=== PATIENT | female | born 1960 | race Caucasian/White ===

== ENCOUNTER 2017-12-08 13:44 | Inpatient (IN) | payer MEDICAID ==
[~2017-12-08] VITALS: Ht 160 cm; Wt 68.2 kg
[2017-12-08 14:13] LABS: GLUCOSE,POINT OF CARE 319 MG/DL (70-110)
[2017-12-08] MEDS ORDERED: antihypertensive PO (14:15)
[2017-12-08] MEDS ORDERED: [UNRECOGNIZED DRUG - REMARK] PO (14:15)
[2017-12-08] MEDS ORDERED: SODIUM CHLORIDE 0.9% 1,000 ML IV ONE ×3 (15:00→16:30)
[2017-12-08 15:37] LABS: BASOPHILS % (AUTO) 1.2 % (0.0-2.0); EOSINOPHILS % (AUTO) 0.8 % (1.0-6.0); HEMATOCRIT 39.1 % (36-46); HEMOGLOBIN 12.9 g/dL (12.0-16.0); LYMPHOCYTES # (AUTO) 4.3 K/uL (1.0-4.8); LYMPHOCYTES % (AUTO) 35.9 % (22.0-44.0); MEAN CORPUSCULAR HEMOGLOBIN 29.1 pg (26.0-34.0); MEAN CORPUSCULAR HGB CONC 32.9 G/dL (31.0-37.0); MEAN CORPUSCULAR VOLUME 89 fL (80-100); MONOCYTES # (AUTO) 0.6 K/uL (0.1-1.0); MONOCYTES % (AUTO) 5.2 % (2.0-9.0); NEUTROPHILS # (AUTO) 6.7 K/uL (1.8-7.7); NEUTROPHILS % (AUTO) 56.9 % (40.0-70.0); PLATELET COUNT (AUTO) 331 K/uL (150-450); RED BLOOD CELL COUNT(AUTO) 4.42 MIL/uL (4.00-5.20)
[2017-12-08 15:52] LABS: ANION GAP 11 mmol/L (8-16); CALCIUM, TOTAL 9.7 mg/dL (8.8-10.5); CARBON DIOXIDE 25 mmol/L (22-29); CHLORIDE 100 mmol/L (98-107); CREATININE 0.78 mg/dL (0.60-1.30); GLOMERULAR FILTR. RATE CALC > 60 mL/min (>60); GLUCOSE,RANDOM 316 mg/dL (70-110); POTASSIUM 4.8 mmol/L (3.5-5.1); SODIUM SERUM 136 mmol/L (136-145); UREA NITROGEN, BLOOD 18 mg/dL (7-18)
[2017-12-08 15:57] LABS: ALANINE AMINOTRANSFERASE 22 U/L (12-78); ALBUMIN 3.7 g/dL (3.4-5.0); ALKALINE PHOSPHATASE 106 U/L (46-116); ASPARTATE AMINOTRANSFERASE 21 U/L (15-37); BILIRUBIN,TOTAL 0.2 mg/dL (0.1-1.0); TOTAL PROTEIN, SERUM 8.7 g/dL (6.4-8.2)
[2017-12-08 15:59] LABS: LACTIC ACID 1.3 mmol/L (0.4-2.0)
[2017-12-08] MEDS ORDERED: VANCOMYCIN HCL 1 GM/D5% WATER 200 ML IV ONE (16:15)
[2017-12-08] MEDS ORDERED: INSULIN REGULAR, HUMAN 100 UNITS/ML IVP ONE (16:15)
[2017-12-08] MEDS ORDERED: 0.9% SODIUM CHLORIDE 10 ML SYRINGE IVP PRN (16:30)
[2017-12-08] MEDS ORDERED: ONDANSETRON HCL 4 MG/2 ML VIAL IVP PRN (16:30)
[2017-12-08] MEDS ORDERED: ACETAMINOPHEN 325 MG TABLET PO PRN (16:30)
[2017-12-08 16:47] LABS: BILIRUBIN,URINE NEGATIVE (NEGATIVE); GLUCOSE, URINE (UA) >=1000 mg/dL (NEGATIVE); KETONES,URINE TRACE mg/dL (NEGATIVE); LEUKOCYTE ESTERASE ,URINE MODERATE (NEGATIVE); NITRATE,URINE NEGATIVE (NEGATIVE); OCCULT BLOOD,URINE TRACE (NEGATIVE); PROTEIN,URINE NEGATIVE (NEGATIVE); UROBILINOGEN,URINE 0.2 mg/dL (<=1.0)
[2017-12-08 16:51] LABS: APPEARANCE,URINE HAZY (CLEAR)
[2017-12-08 16:55] LABS: BACTERIA,URINE Few /HPF (None Seen); RBC,URINE 0-2 /HPF (0-2); SQUAMOUS EPITHELIAL CELL,UR Few /LPF (None Seen)
[2017-12-08 16:59] LABS: YEAST,URINE Rare /HPF (None Seen)
[2017-12-08 17:33] LABS: GLUCOSE,POINT OF CARE 245 MG/DL (70-110)
[2017-12-08 17:54] VITALS: BP 158/78
[2017-12-08] MEDS ORDERED: PNEUMOCOCCAL VACCINE POLYVALENT 0.5 ML VIAL [PPSV23] IM ONE (18:15)
[2017-12-08] MEDS ORDERED: INFLUENZA VIRUS VACCINE QVS 2017-18 (3YR+)/PF 60 MCG/0.5 ML SYRINGE IM ONE (18:15)
[2017-12-08 20:01] VITALS: BP 137/72
[2017-12-08 20:53] LABS: GLUCOMETER DEV NAME(LOC) 6N 2D; GLUCOSE,POINT OF CARE 267 MG/DL (70-110)
[2017-12-08] MEDS ORDERED: DEXTROSE 50%-WATER 25 GM/50 ML SYRINGE IVP PRN (21:00)
[2017-12-08] MEDS: DORZOLAMIDE/TIMOLOL 2-0.5% [22.3-6.8MG/ML] 10 ML OPHTHALMIC SOLUTION OS SCH (21:00)
[2017-12-08] MEDS: LATANOPROST 0.005% 2.5 ML OPHTHALMIC SOLUTION OU SCH ×2 (21:00→23:27)
[2017-12-08] MEDS: BRIMONIDINE TARTRATE 0.2% 5 ML OPHTHALMIC SOLUTION OS SCH ×2 (21:00→23:28)
[2017-12-08] MEDS ORDERED: VANCOMYCIN HCL 500 MG in DEXTROSE 5%-WATER 100 ML IV ONE (21:30)
[2017-12-08] MEDS: PIPERACILLIN/TAZO 3.375 GM/D5W 50 ML IV SCH (23:27)
[2017-12-08] MEDS: HYDROCODONE/ACETAMINOPHEN 5-325 MG TABLET PO PRN (23:27)
[2017-12-08] MEDS: INSULIN ASPART 100 UNITS/ML SQ PRN (23:29)
[2017-12-08] MEDS: HEPARIN SODIUM,PORCINE 5,000 UNITS/ML VIAL SQ SCH (23:43)
[2017-12-09 00:23] VITALS: BP 147/78
[2017-12-09] MEDS: PIPERACILLIN/TAZO 3.375 GM/D5W 50 ML IV SCH ×5 (03:53→20:11)
[2017-12-09 04:15] VITALS: BP 111/61
[2017-12-09] MEDS: INSULIN ASPART 100 UNITS/ML SQ PRN ×4 (05:49→21:17)
[2017-12-09 06:16] LABS: ANION GAP 9 mmol/L (8-16); CALCIUM, TOTAL 8.7 mg/dL (8.8-10.5); CARBON DIOXIDE 26 mmol/L (22-29); CHLORIDE 107 mmol/L (98-107); CREATININE 0.83 mg/dL (0.60-1.30); GLOMERULAR FILTR. RATE CALC > 60 mL/min (>60); GLUCOSE,RANDOM 165 mg/dL (70-110); POTASSIUM 4.4 mmol/L (3.5-5.1); SODIUM SERUM 142 mmol/L (136-145); UREA NITROGEN, BLOOD 15 mg/dL (7-18)
[2017-12-09] MEDS ORDERED: METF850T2 PO (06:44)
[2017-12-09] MEDS ORDERED: ENAL20 PO (06:44)
[2017-12-09 07:58] VITALS: BP 106/67
[2017-12-09] MEDS: HEPARIN SODIUM,PORCINE 5,000 UNITS/ML VIAL SQ SCH ×3 (08:15→22:57)
[2017-12-09] MEDS: VANCOMYCIN HCL 1.25 GM in DEXTROSE 5%-WATER 250 ML IV SCH ×2 (08:15→20:58)
[2017-12-09] MEDS: MetFORMIN HCL 850 MG TABLET PO SCH ×2 (08:16→17:51)
[2017-12-09] MEDS: HYDROCODONE/ACETAMINOPHEN 5-325 MG TABLET PO PRN ×2 (08:16→22:56)
[2017-12-09] MEDS: BRIMONIDINE TARTRATE 0.2% 5 ML OPHTHALMIC SOLUTION OS SCH ×2 (08:17→20:13)
[2017-12-09] MEDS: ENALAPRIL MALEATE 20 MG TABLET PO SCH (08:17)
[2017-12-09] MEDS: DORZOLAMIDE/TIMOLOL/PF 2-0.5% [22.3-6.8MG/ML] 0.2 ML OPHTHALMIC SOLUTION OS SCH ×2 (10:27→20:13)
[2017-12-09 11:59] VITALS: BP 105/62
[2017-12-09 13:08] LABS: GLUCOMETER DEV NAME(LOC) 6N 1E; GLUCOSE,POINT OF CARE 331 MG/DL (70-110)
[2017-12-09 13:08] LABS: GLUCOMETER DEV NAME(LOC) 6N 1E; GLUCOSE,POINT OF CARE 160 MG/DL (70-110)
[2017-12-09] MEDS: MAGNESIUM HYDROXIDE SUSPENSION 30 ML UDCUP PO PRN (17:54)
[2017-12-09 19:24] VITALS: BP 93/60
[2017-12-09 19:48] LABS: GLUCOMETER DEV NAME(LOC) 6N 1E; GLUCOSE,POINT OF CARE 220 MG/DL (70-110)
[2017-12-09] MEDS: LATANOPROST 0.005% 2.5 ML OPHTHALMIC SOLUTION OU SCH (20:13)
[2017-12-09 23:38] VITALS: BP 103/52
[2017-12-10 02:17] LABS: GLUCOMETER DEV NAME(LOC) 6N 1E; GLUCOSE,POINT OF CARE 203 MG/DL (70-110)
[2017-12-10] MEDS: PIPERACILLIN/TAZO 3.375 GM/D5W 50 ML IV SCH ×4 (03:30→20:15)
[2017-12-10] MEDS ORDERED: SODIUM CHLORIDE 0.9% 500 ML IV ONE (03:32)
[2017-12-10 04:18] VITALS: BP 102/62
[2017-12-10] MEDS: INSULIN ASPART 100 UNITS/ML SQ PRN ×4 (06:03→20:36)
[2017-12-10 06:19] LABS: BASOPHILS % (AUTO) 0.7 % (0.0-2.0); EOSINOPHILS % (AUTO) 1.7 % (1.0-6.0); HEMATOCRIT 34.5 % (36-46); HEMOGLOBIN 11.5 g/dL (12.0-16.0); LYMPHOCYTES # (AUTO) 5.4 K/uL (1.0-4.8); LYMPHOCYTES % (AUTO) 58.4 % (22.0-44.0); MEAN CORPUSCULAR HEMOGLOBIN 29.9 pg (26.0-34.0); MEAN CORPUSCULAR HGB CONC 33.4 G/dL (31.0-37.0); MEAN CORPUSCULAR VOLUME 90 fL (80-100); MONOCYTES # (AUTO) 0.5 K/uL (0.1-1.0); MONOCYTES % (AUTO) 5.4 % (2.0-9.0); NEUTROPHILS # (AUTO) 3.2 K/uL (1.8-7.7); NEUTROPHILS % (AUTO) 33.8 % (40.0-70.0); PLATELET COUNT (AUTO) 283 K/uL (150-450); RED BLOOD CELL COUNT(AUTO) 3.85 MIL/uL (4.00-5.20); RED CELL DISTRIBUTION WIDTH 13.2 % (11.5-14.5)
[2017-12-10 06:23] LABS: GLUCOMETER DEV NAME(LOC) 6N 1E; GLUCOSE,POINT OF CARE 207 MG/DL (70-110)
[2017-12-10 06:41] LABS: ANION GAP 9 mmol/L (8-16); CALCIUM, TOTAL 8.9 mg/dL (8.8-10.5); CARBON DIOXIDE 27 mmol/L (22-29); CHLORIDE 103 mmol/L (98-107); CHOL/HDL RATIO 6.9 (3.9-5.7); CHOLESTEROL 228 mg/dL (131-200); CREATININE 0.85 mg/dL (0.60-1.30); GLOMERULAR FILTR. RATE CALC > 60 mL/min (>60); GLUCOSE,RANDOM 183 mg/dL (70-110); HDL CHOLESTEROL 33 mg/dL (40-60); LDL CHOL (CALC.) 139 mg/dL (0-130); POTASSIUM 4.6 mmol/L (3.5-5.1); SODIUM SERUM 139 mmol/L (136-145); THYROID STIMULATING HORMONE 1.99 uIU/mL (0.36-3.74); TRIGLYCERIDES 278 mg/dL (15-150); UREA NITROGEN, BLOOD 14 mg/dL (7-18); VANCOMYCIN,RANDOM 21.9 mcg/mL (25.0-50.0)
[2017-12-10 07:11] LABS: HEMOGLOBIN A1C 11.5 % (4.5-6.2)
[2017-12-10 07:27] VITALS: BP 104/60
[2017-12-10] MEDS: HEPARIN SODIUM,PORCINE 5,000 UNITS/ML VIAL SQ SCH ×3 (07:54→23:16)
[2017-12-10] MEDS: MetFORMIN HCL 850 MG TABLET PO SCH ×2 (07:54→17:16)
[2017-12-10] MEDS: ENALAPRIL MALEATE 20 MG TABLET PO SCH (07:54)
[2017-12-10] MEDS: BRIMONIDINE TARTRATE 0.2% 5 ML OPHTHALMIC SOLUTION OS SCH ×2 (07:55→20:16)
[2017-12-10] MEDS: VANCOMYCIN HCL 1.25 GM in DEXTROSE 5%-WATER 250 ML IV SCH ×2 (07:55→20:34)
[2017-12-10] MEDS: DORZOLAMIDE/TIMOLOL/PF 2-0.5% [22.3-6.8MG/ML] 0.2 ML OPHTHALMIC SOLUTION OS SCH ×2 (09:48→20:17)
[2017-12-10 11:29] VITALS: BP 106/57
[2017-12-10 11:38] LABS: GLUCOMETER DEV NAME(LOC) 6N 1E; GLUCOSE,POINT OF CARE 303 MG/DL (70-110)
[2017-12-10 15:20] VITALS: BP 108/57
[2017-12-10] MEDS ORDERED: MAGNESIUM SULFATE 2 GM in DEXTROSE 5%-WATER 50 ML IV PRN (16:45)
[2017-12-10] MEDS ORDERED: MAGNESIUM SULFATE 4 GM/WATER 100 ML IV PRN (16:45)
[2017-12-10] MEDS: HYDROCODONE/ACETAMINOPHEN 5-325 MG TABLET PO PRN ×2 (17:16→23:16)
[2017-12-10] MEDS: MAGNESIUM OXIDE 400 MG TABLET PO PRN ×2 (17:16→23:16)
[2017-12-10] MEDS: MAGNESIUM HYDROXIDE SUSPENSION 30 ML UDCUP PO PRN (17:16)
[2017-12-10 19:46] VITALS: BP 111/64
[2017-12-10] MEDS: LATANOPROST 0.005% 2.5 ML OPHTHALMIC SOLUTION OU SCH (20:34)
[2017-12-10] MEDS ORDERED: INSULIN DETEMIR 100 UNITS/ML SQ SCH (21:00)
[2017-12-10] MEDS ORDERED: ATORVASTATIN CALCIUM 10 MG TABLET PO SCH (21:00)
[2017-12-10 23:39] VITALS: BP 106/58
[2017-12-11] MEDS: PIPERACILLIN/TAZO 3.375 GM/D5W 50 ML IV SCH ×3 (02:46→16:48)
[2017-12-11 04:00] VITALS: BP 105/45
[2017-12-11 07:24] LABS: CALCIUM, TOTAL 9.1 mg/dL (8.8-10.5); CREATININE 1.09 mg/dL (0.60-1.30); POTASSIUM 4.3 mmol/L (3.5-5.1)
[2017-12-11 07:57] VITALS: BP 100/52
[2017-12-11] MEDS: MetFORMIN HCL 850 MG TABLET PO SCH ×2 (08:30→18:10)
[2017-12-11] MEDS: VANCOMYCIN HCL 1.25 GM in DEXTROSE 5%-WATER 250 ML IV SCH (08:30)
[2017-12-11] MEDS: DORZOLAMIDE/TIMOLOL/PF 2-0.5% [22.3-6.8MG/ML] 0.2 ML OPHTHALMIC SOLUTION OS SCH (08:30)
[2017-12-11] MEDS: HYDROCODONE/ACETAMINOPHEN 5-325 MG TABLET PO PRN ×2 (08:31→18:20)
[2017-12-11] MEDS: BRIMONIDINE TARTRATE 0.2% 5 ML OPHTHALMIC SOLUTION OS SCH (08:31)
[2017-12-11] MEDS: HEPARIN SODIUM,PORCINE 5,000 UNITS/ML VIAL SQ SCH ×2 (08:31→16:48)
[2017-12-11] MEDS: INSULIN ASPART 100 UNITS/ML SQ PRN ×3 (08:32→17:55)
[2017-12-11] MEDS: ENALAPRIL MALEATE 20 MG TABLET PO SCH ×2 (08:33→08:38)
[2017-12-11 11:30] VITALS: BP 94/55
[2017-12-11 14:47] LABS: GLUCOMETER DEV NAME(LOC) 6N 1E; GLUCOSE,POINT OF CARE 205 MG/DL (70-110)
[2017-12-11 14:52] LABS: GLUCOMETER DEV NAME(LOC) 6N 1E; GLUCOSE,POINT OF CARE 204 MG/DL (70-110)
[2017-12-11 14:52] LABS: GLUCOMETER DEV NAME(LOC) 6N 1E; GLUCOSE,POINT OF CARE 145 MG/DL (70-110)
[2017-12-11] MEDS ORDERED: HYDR-309 PO (15:13)
[2017-12-11] MEDS ORDERED: ATOR10TA84 PO (15:13)
[2017-12-11] MEDS ORDERED: INSU100V12 SQ (15:14)
[2017-12-11 15:56] VITALS: BP 115/65
[2017-12-11] MEDS ORDERED: METF500T4 PO (16:36)
[2017-12-11 18:53] LABS: GLUCOMETER DEV NAME(LOC) 6N 2D; GLUCOSE,POINT OF CARE 247 MG/DL (70-110)
[2017-12-11 18:53] LABS: GLUCOMETER DEV NAME(LOC) 6N 2D; GLUCOSE,POINT OF CARE 171 MG/DL (70-110)
== END 2017-12-11 18:48 | disposition home or self-care (01) | DRG 463 ==
LOC: EMS 13:47 → 6N 17:09
PROVIDERS: ADMIT Family Medicine; ATTEND Family Medicine
DX: N39.0 Urinary tract infection, site not specified (principal); E11.628 Type 2 diabetes mellitus with other skin complications; L03.115 Cellulitis of right lower limb; I10 Essential (primary) hypertension; H54.7 Unspecified visual loss; I45.2 Bifascicular block
CPT/HCPCS: 82962; 83036; 83605; 83735; 84443; 87040; 87086; 93005; 93925; 96374; 96375; 99285; J1644; J1815; J2543; J3370; J7030; J7040; J7060

== ENCOUNTER 2018-09-28 20:31 | Inpatient (IN) | payer MEDICAID ==
[~2018-09-28] VITALS: Ht 162.6 cm; Wt 87.3 kg
[~2018-09-28 20:31] MED LIST: ATOR10TA84 PO; BRIM15DR8 OS; CEPH500 PO; ENAL20 PO; HYDR-309 PO; IBUP-2071 PO; INSU100V12 SQ; METF-960 PO; XALA2.5OS OD
[2018-09-28 20:53] LABS: GLUCOSE,POINT OF CARE 357 MG/DL (70-110)
[2018-09-28] MEDS ORDERED: ASPI81 PO (21:10)
[2018-09-28] MEDS ORDERED: AMLO-512 PO (21:10)
[2018-09-28] MEDS ORDERED: PANT40TA25 PO (21:10)
[2018-09-28] MEDS ORDERED: PREDAOS OD (21:10)
[2018-09-28] MEDS ORDERED: PIPERACILLIN/TAZO 3.375 GM/D5W 50 ML IV ONE (21:30)
[2018-09-28] MEDS ORDERED: INSULIN REGULAR, HUMAN 100 UNITS/ML IVP ONE (21:45)
[2018-09-28 22:15] LABS: BASOPHILS % (AUTO) 0.9 % (0.0-2.0); EOSINOPHILS % (AUTO) 0.7 % (1.0-6.0); HEMATOCRIT 37.4 % (36-46); HEMOGLOBIN 12.4 g/dL (12.0-16.0); LYMPHOCYTES # (AUTO) 4.2 K/uL (1.0-4.8); LYMPHOCYTES % (AUTO) 31.3 % (22.0-44.0); MEAN CORPUSCULAR HEMOGLOBIN 30.2 pg (26.0-34.0); MEAN CORPUSCULAR HGB CONC 33.3 G/dL (31.0-37.0); MEAN CORPUSCULAR VOLUME 91 fL (80-100); MONOCYTES # (AUTO) 0.9 K/uL (0.1-1.0); NEUTROPHILS % (AUTO) 60.1 % (40.0-70.0); PLATELET COUNT (AUTO) 354 K/uL (150-450); RED BLOOD CELL COUNT(AUTO) 4.12 MIL/uL (4.00-5.20)
[2018-09-28 22:26] LABS: ANION GAP 10 mmol/L (8-16); CALCIUM, TOTAL 9.5 mg/dL (8.8-10.5); CARBON DIOXIDE 26 mmol/L (22-29); CHLORIDE 99 mmol/L (98-107); CREATININE 1.06 mg/dL (0.60-1.30); GLOMERULAR FILTR. RATE CALC 53 mL/min (>60); GLUCOSE,RANDOM 319 mg/dL (70-110); INR 0.9 (0.9-1.1); POTASSIUM 4.5 mmol/L (3.5-5.1); PROTHROMBIN TIME 9.7 SEC (9.4-11.6); SODIUM SERUM 135 mmol/L (136-145); UREA NITROGEN, BLOOD 24 mg/dL (7-18)
[2018-09-28 22:32] LABS: ALANINE AMINOTRANSFERASE 22 U/L (12-78); ALBUMIN 3.6 g/dL (3.4-5.0); ALKALINE PHOSPHATASE 115 U/L (46-116); ASPARTATE AMINOTRANSFERASE 15 U/L (15-37); BILIRUBIN,TOTAL 0.2 mg/dL (0.1-1.0); TOTAL PROTEIN, SERUM 8.4 g/dL (6.4-8.2)
[2018-09-28 22:37] LABS: LACTIC ACID 2.6 mmol/L (0.4-2.0)
[2018-09-28 22:38] LABS: ACETONE,BLOOD NEGATIVE (NEGATIVE)
[2018-09-28] MEDS ORDERED: ACETAMINOPHEN 325 MG TABLET PO PRN (23:15)
[2018-09-28] MEDS ORDERED: 0.9% SODIUM CHLORIDE 10 ML SYRINGE IVP PRN (23:15)
[2018-09-28] MEDS ORDERED: ONDANSETRON HCL 4 MG/2 ML VIAL IVP PRN (23:15)
[2018-09-28 23:39] LABS: GLUCOSE,POINT OF CARE 133 MG/DL (70-110)
[2018-09-29] VITALS (8 sets, daily range): BP systolic 94–153; BP diastolic 52–80
[2018-09-29] MEDS ORDERED: ALBUTEROL SULFATE 2.5 MG/0.5 ML NEB SOLUTION NEB PRN
[2018-09-29] MEDS ORDERED: MAGNESIUM OXIDE 400 MG TABLET PO PRN
[2018-09-29] MEDS ORDERED: MAGNESIUM HYDROXIDE SUSPENSION 30 ML UDCUP PO PRN
[2018-09-29] MEDS ORDERED: MAGNESIUM SULFATE 2 GM/WATER 50 ML IV PRN
[2018-09-29] MEDS ORDERED: DEXTROSE 50%-WATER 25 GM/50 ML SYRINGE IVP PRN
[2018-09-29] MEDS ORDERED: MORPHINE SULFATE 4 MG/ML SYRINGE IVP PRN
[2018-09-29] MEDS ORDERED: IPRATROPIUM BROMIDE 0.5 MG/2.5 ML NEB SOLUTION NEB PRN
[2018-09-29] MEDS ORDERED: POTASSIUM CHLORIDE 20 MEQ ER TABLET PO PRN
[2018-09-29] MEDS ORDERED: MAGNESIUM SULFATE 4 GM/WATER 100 ML IV PRN
[2018-09-29] MEDS ORDERED: ONDANSETRON HCL 4 MG/2 ML VIAL IVP PRN
[2018-09-29] MEDS ORDERED: POTASSIUM CHL 10 MEQ/WATER 50 ML IV PRN
[2018-09-29] MEDS ORDERED: BISACODYL 10 MG RECTAL RECTAL SUPPOSITORY PR PRN
[2018-09-29] MEDS ORDERED: ZOLPIDEM TARTRATE 5 MG TABLET PO PRN
[2018-09-29] MEDS: ACETAMINOPHEN 325 MG TABLET PO PRN ×2 (01:23→20:54)
[2018-09-29] MEDS ORDERED: PIPERACILLIN/TAZO 3.375 GM/D5W 50 ML IV SCH (04:00)
[2018-09-29] MEDS ORDERED: SODIUM CHLORIDE 0.9% 100 ML ONE (04:01)
[2018-09-29] MEDS: PIPERACILLIN/TAZO 3.375 GM/D5W 50 ML IV SCH ×4 (04:06→22:54)
[2018-09-29] MEDS ORDERED: PIPERACILLIN/TAZO 3.375 GM/D5W 50 ML IV ONE (04:15)
[2018-09-29] MEDS ORDERED: PNEUMOCOCCAL VACCINE POLYVALENT 0.5 ML VIAL [PPSV23] IM ONE (05:00)
[2018-09-29] MEDS: INSULIN LISPRO 100 UNITS/ML SQ PRN ×4 (06:29→20:55)
[2018-09-29 06:39] LABS: BASOPHILS % (AUTO) 0.6 % (0.0-2.0); EOSINOPHILS % (AUTO) 0.9 % (1.0-6.0); HEMATOCRIT 31.9 % (36-46); HEMOGLOBIN 10.9 g/dL (12.0-16.0); LYMPHOCYTES # (AUTO) 4.2 K/uL (1.0-4.8); LYMPHOCYTES % (AUTO) 36.1 % (22.0-44.0); MEAN CORPUSCULAR HEMOGLOBIN 30.5 pg (26.0-34.0); MEAN CORPUSCULAR VOLUME 90 fL (80-100); MONOCYTES # (AUTO) 0.8 K/uL (0.1-1.0); MONOCYTES % (AUTO) 7.3 % (2.0-9.0); NEUTROPHILS # (AUTO) 6.4 K/uL (1.8-7.7); NEUTROPHILS % (AUTO) 55.1 % (40.0-70.0); PLATELET COUNT (AUTO) 304 K/uL (150-450); RED BLOOD CELL COUNT(AUTO) 3.56 MIL/uL (4.00-5.20); RED CELL DISTRIBUTION WIDTH 12.9 % (11.5-14.5)
[2018-09-29 06:52] LABS: ALBUMIN 2.9 g/dL (3.4-5.0); BILIRUBIN,TOTAL 0.3 mg/dL (0.1-1.0); CALCIUM, TOTAL 9.1 mg/dL (8.8-10.5); CREATININE 1.17 mg/dL (0.60-1.30); MAGNESIUM 1.4 mg/dL (1.80-2.40); PHOSPHORUS 4.5 mg/dL (2.5-4.9); POTASSIUM 4.7 mmol/L (3.5-5.1); TOTAL PROTEIN, SERUM 6.7 g/dL (6.4-8.2)
[2018-09-29 07:01] LABS: HEMOGLOBIN A1C 11.6 % (4.5-6.2)
[2018-09-29] MEDS ORDERED: MetFORMIN HCL 500 MG TABLET PO SCH (08:00)
[2018-09-29] MEDS: PANTOPRAZOLE SODIUM 40 MG DR TABLET PO SCH (08:33)
[2018-09-29] MEDS: ASPIRIN 81 MG CHEWABLE TABLET PO SCH (08:33)
[2018-09-29] MEDS: PrednisoLONE ACETATE 1% 5 ML OPHTHALMIC SUSPENSION OD SCH (08:34)
[2018-09-29] MEDS: BRIMONIDINE TARTRATE 0.2% 5 ML OPHTHALMIC SOLUTION OS SCH ×2 (08:34→21:44)
[2018-09-29] MEDS: HEPARIN SODIUM,PORCINE 5,000 UNITS/ML VIAL SQ SCH ×2 (08:36→20:55)
[2018-09-29] MEDS ORDERED: AmLODIPine BESYLATE 10 MG TABLET PO SCH (09:00)
[2018-09-29] MEDS ORDERED: ENALAPRIL MALEATE 20 MG TABLET PO SCH (09:00)
[2018-09-29] MEDS ORDERED: SODIUM CHLORIDE 0.9% 250 ML IV ONE (11:29)
[2018-09-29 18:59] LABS: GLUCOMETER DEV NAME(LOC) 6N 1E; GLUCOSE,POINT OF CARE 199 MG/DL (70-110)
[2018-09-29 19:58] LABS: GLUCOMETER DEV NAME(LOC) 5S 2R; GLUCOSE,POINT OF CARE 178 MG/DL (70-110)
[2018-09-29 19:58] LABS: GLUCOMETER DEV NAME(LOC) 5S 2R; GLUCOSE,POINT OF CARE 166 MG/DL (70-110)
[2018-09-29] MEDS: ATORVASTATIN CALCIUM 10 MG TABLET PO SCH (20:54)
[2018-09-29] MEDS: LATANOPROST 0.005% 2.5 ML OPHTHALMIC SOLUTION OD SCH (21:44)
[2018-09-29 22:18] LABS: GLUCOMETER DEV NAME(LOC) 6N 1E; GLUCOSE,POINT OF CARE 211 MG/DL (70-110)
[2018-09-30] MEDS: PIPERACILLIN/TAZO 3.375 GM/D5W 50 ML IV SCH ×4 (04:49→21:44)
[2018-09-30 05:13] VITALS: BP 105/61
[2018-09-30] MEDS: INSULIN LISPRO 100 UNITS/ML SQ PRN ×4 (06:10→20:23)
[2018-09-30 07:14] LABS: GLUCOMETER DEV NAME(LOC) 6N 2D; GLUCOSE,POINT OF CARE 195 MG/DL (70-110)
[2018-09-30 07:59] VITALS: BP 107/60
[2018-09-30] MEDS: HEPARIN SODIUM,PORCINE 5,000 UNITS/ML VIAL SQ SCH ×2 (08:12→20:19)
[2018-09-30] MEDS: ASPIRIN 81 MG CHEWABLE TABLET PO SCH (08:12)
[2018-09-30] MEDS: PANTOPRAZOLE SODIUM 40 MG DR TABLET PO SCH (08:12)
[2018-09-30] MEDS: PrednisoLONE ACETATE 1% 5 ML OPHTHALMIC SUSPENSION OD SCH (08:13)
[2018-09-30] MEDS: BRIMONIDINE TARTRATE 0.2% 5 ML OPHTHALMIC SOLUTION OS SCH ×2 (08:13→20:19)
[2018-09-30 09:38] LABS: CALCIUM, TOTAL 8.8 mg/dL (8.8-10.5); CREATININE 1.11 mg/dL (0.60-1.30); POTASSIUM 4.8 mmol/L (3.5-5.1)
[2018-09-30 13:13] LABS: GLUCOMETER DEV NAME(LOC) 6N 2D; GLUCOSE,POINT OF CARE 253 MG/DL (70-110)
[2018-09-30] MEDS: OxyCODONE HCL/ACETAMINOPHEN 5-325 MG TABLET PO PRN (14:07)
[2018-09-30 15:25] VITALS: BP 138/66
[2018-09-30 15:35] VITALS: BP 126/55
[2018-09-30 17:38] LABS: GLUCOMETER DEV NAME(LOC) 6N 2D; GLUCOSE,POINT OF CARE 211 MG/DL (70-110)
[2018-09-30 19:45] VITALS: BP 111/68
[2018-09-30] MEDS: LATANOPROST 0.005% 2.5 ML OPHTHALMIC SOLUTION OD SCH (20:18)
[2018-09-30] MEDS: ATORVASTATIN CALCIUM 10 MG TABLET PO SCH (20:19)
[2018-09-30] MEDS: ACETAMINOPHEN 325 MG TABLET PO PRN (20:19)
[2018-09-30 22:13] LABS: GLUCOMETER DEV NAME(LOC) 6N 2D; GLUCOSE,POINT OF CARE 270 MG/DL (70-110)
[2018-09-30 23:51] VITALS: BP 96/55
[2018-10-01 04:50] VITALS: BP 108/62
[2018-10-01] MEDS: PIPERACILLIN/TAZO 3.375 GM/D5W 50 ML IV SCH ×4 (04:56→22:06)
[2018-10-01] MEDS: INSULIN LISPRO 100 UNITS/ML SQ PRN ×4 (05:42→22:07)
[2018-10-01] MEDS: ACETAMINOPHEN 325 MG TABLET PO PRN ×2 (05:47→15:53)
[2018-10-01 07:29] LABS: GLUCOMETER DEV NAME(LOC) 6N 2D; GLUCOSE,POINT OF CARE 189 MG/DL (70-110)
[2018-10-01 08:14] VITALS: BP 110/69
[2018-10-01] MEDS: ASPIRIN 81 MG CHEWABLE TABLET PO SCH (09:00)
[2018-10-01] MEDS: HEPARIN SODIUM,PORCINE 5,000 UNITS/ML VIAL SQ SCH ×3 (09:00→23:54)
[2018-10-01] MEDS ORDERED: RINGERS SOLUTION,LACTATED 1,000 ML IV ONE (09:00)
[2018-10-01] MEDS ORDERED: HEPARIN SODIUM 1000 UNITS/NS 500 ML ONE (09:34)
[2018-10-01] MEDS ORDERED: SODIUM CHLORIDE 0.9% 0 ML IV ONE (09:34)
[2018-10-01] MEDS ORDERED: LIDOCAINE/PF 1% 30 ML VIAL ONE (09:34)
[2018-10-01] MEDS ORDERED: VERAPAMIL HCL 2.5 MG/ML 2 ML VIAL ONE (09:37)
[2018-10-01] MEDS ORDERED: IODIXANOL 320 MG/ML 100 ML VIAL ONE (09:43)
[2018-10-01 12:30] VITALS: BP 127/79
[2018-10-01] MEDS: PrednisoLONE ACETATE 1% 5 ML OPHTHALMIC SUSPENSION OD SCH (12:31)
[2018-10-01] MEDS: PANTOPRAZOLE SODIUM 40 MG DR TABLET PO SCH (12:32)
[2018-10-01] MEDS: BRIMONIDINE TARTRATE 0.2% 5 ML OPHTHALMIC SOLUTION OS SCH ×2 (12:32→20:50)
[2018-10-01 15:48] VITALS: BP 127/76
[2018-10-01 16:04] LABS: GLUCOMETER DEV NAME(LOC) 6N 1E; GLUCOSE,POINT OF CARE 256 MG/DL (70-110)
[2018-10-01 19:22] VITALS: BP 109/74
[2018-10-01 19:49] LABS: GLUCOMETER DEV NAME(LOC) 6N 2D; GLUCOSE,POINT OF CARE 183 MG/DL (70-110)
[2018-10-01] MEDS: ATORVASTATIN CALCIUM 10 MG TABLET PO SCH (20:50)
[2018-10-01] MEDS: LATANOPROST 0.005% 2.5 ML OPHTHALMIC SOLUTION OD SCH (20:50)
[2018-10-01] MEDS: OxyCODONE HCL/ACETAMINOPHEN 5-325 MG TABLET PO PRN (20:58)
[2018-10-01 23:03] VITALS: BP 103/61
[2018-10-02] MEDS: PIPERACILLIN/TAZO 3.375 GM/D5W 50 ML IV SCH ×4 (04:06→20:50)
[2018-10-02 04:14] VITALS: BP 112/68
[2018-10-02] MEDS: OxyCODONE HCL/ACETAMINOPHEN 5-325 MG TABLET PO PRN ×4 (04:27→22:24)
[2018-10-02] MEDS ORDERED: MIDAZOLAM HCL 2 MG/2 ML VIAL IVP ONE (05:40)
[2018-10-02] MEDS ORDERED: FentaNYL CITRATE-PF 100 MCG/2 ML VIAL IVP ONE (05:40)
[2018-10-02] MEDS ORDERED: HEPARIN SODIUM,PORCINE 1,000 UNITS/ML VIAL IVP ONE (05:40)
[2018-10-02 06:08] LABS: GLUCOMETER DEV NAME(LOC) 6N 2D; GLUCOSE,POINT OF CARE 201 MG/DL (70-110)
[2018-10-02] MEDS: INSULIN LISPRO 100 UNITS/ML SQ PRN ×4 (06:28→21:00)
[2018-10-02 07:40] VITALS: BP 127/73
[2018-10-02] MEDS ORDERED: MEDRONATE TC99M/UD<30 MCL ISOTOPE 1 EA INJ INJ ONE (09:27)
[2018-10-02] MEDS: PANTOPRAZOLE SODIUM 40 MG DR TABLET PO SCH (09:39)
[2018-10-02] MEDS: HEPARIN SODIUM,PORCINE 5,000 UNITS/ML VIAL SQ SCH ×2 (09:39→20:50)
[2018-10-02] MEDS: ASPIRIN 81 MG CHEWABLE TABLET PO SCH (09:39)
[2018-10-02] MEDS: BRIMONIDINE TARTRATE 0.2% 5 ML OPHTHALMIC SOLUTION OS SCH ×2 (09:40→20:50)
[2018-10-02] MEDS: PrednisoLONE ACETATE 1% 5 ML OPHTHALMIC SUSPENSION OD SCH (09:40)
[2018-10-02 11:10] VITALS: BP 103/65
[2018-10-02 12:24] LABS: GLUCOMETER DEV NAME(LOC) 6N 1E; GLUCOSE,POINT OF CARE 198 MG/DL (70-110)
[2018-10-02 13:44] LABS: GLUCOMETER DEV NAME(LOC) 6N 2D; GLUCOSE,POINT OF CARE 321 MG/DL (70-110)
[2018-10-02 16:01] VITALS: BP 144/74
[2018-10-02 19:54] LABS: GLUCOMETER DEV NAME(LOC) 6N 2D; GLUCOSE,POINT OF CARE 242 MG/DL (70-110)
[2018-10-02 19:55] VITALS: BP 125/69
[2018-10-02] MEDS: LATANOPROST 0.005% 2.5 ML OPHTHALMIC SOLUTION OD SCH (20:50)
[2018-10-02] MEDS: ATORVASTATIN CALCIUM 10 MG TABLET PO SCH (20:50)
[2018-10-03 00:02] VITALS: BP 102/50
[2018-10-03 02:53] LABS: GLUCOMETER DEV NAME(LOC) 6N 1E; GLUCOSE,POINT OF CARE 292 MG/DL (70-110)
[2018-10-03] MEDS: PIPERACILLIN/TAZO 3.375 GM/D5W 50 ML IV SCH ×4 (04:56→22:13)
[2018-10-03] MEDS: INSULIN LISPRO 100 UNITS/ML SQ PRN ×4 (05:31→22:14)
[2018-10-03 05:33] VITALS: BP 110/61
[2018-10-03 07:59] VITALS: BP 113/65
[2018-10-03 08:03] LABS: GLUCOMETER DEV NAME(LOC) 6N 1E; GLUCOSE,POINT OF CARE 215 MG/DL (70-110)
[2018-10-03] MEDS: PANTOPRAZOLE SODIUM 40 MG DR TABLET PO SCH (09:16)
[2018-10-03] MEDS: ASPIRIN 81 MG CHEWABLE TABLET PO SCH (09:16)
[2018-10-03] MEDS: HEPARIN SODIUM,PORCINE 5,000 UNITS/ML VIAL SQ SCH ×2 (09:16→20:12)
[2018-10-03] MEDS: MULTIVITAMINS WITH MINERALS, THERAPEUTIC TABLET PO SCH (09:16)
[2018-10-03] MEDS: PrednisoLONE ACETATE 1% 5 ML OPHTHALMIC SUSPENSION OD SCH (09:17)
[2018-10-03] MEDS: BRIMONIDINE TARTRATE 0.2% 5 ML OPHTHALMIC SOLUTION OS SCH ×2 (09:17→20:12)
[2018-10-03 11:51] VITALS: BP 113/67
[2018-10-03] MEDS: OxyCODONE HCL/ACETAMINOPHEN 5-325 MG TABLET PO PRN ×2 (13:19→20:12)
[2018-10-03 16:04] VITALS: BP 135/71
[2018-10-03] MEDS ORDERED: SODIUM CHLORIDE 0.9% 250 ML IV ONE (16:13)
[2018-10-03 18:54] LABS: GLUCOMETER DEV NAME(LOC) 6N 1E; GLUCOSE,POINT OF CARE 306 MG/DL (70-110)
[2018-10-03 18:54] LABS: GLUCOMETER DEV NAME(LOC) 6N 2D; GLUCOSE,POINT OF CARE 275 MG/DL (70-110)
[2018-10-03] MEDS: ATORVASTATIN CALCIUM 10 MG TABLET PO SCH (20:11)
[2018-10-03] MEDS: LATANOPROST 0.005% 2.5 ML OPHTHALMIC SOLUTION OD SCH (20:12)
[2018-10-03 20:49] VITALS: BP 111/68
[2018-10-03] MEDS: ACETAMINOPHEN 325 MG TABLET PO PRN (22:13)
[2018-10-04 00:25] VITALS: BP 104/55
[2018-10-04 00:39] LABS: GLUCOMETER DEV NAME(LOC) 6N 1E; GLUCOSE,POINT OF CARE 218 MG/DL (70-110)
[2018-10-04] MEDS: PIPERACILLIN/TAZO 3.375 GM/D5W 50 ML IV SCH ×4 (03:19→22:07)
[2018-10-04 05:14] VITALS: BP 122/70
[2018-10-04] MEDS: INSULIN LISPRO 100 UNITS/ML SQ PRN ×4 (05:42→21:34)
[2018-10-04 06:04] LABS: GLUCOMETER DEV NAME(LOC) 6N 2D; GLUCOSE,POINT OF CARE 181 MG/DL (70-110)
[2018-10-04] MEDS: HEPARIN SODIUM,PORCINE 5,000 UNITS/ML VIAL SQ SCH ×2 (09:05→21:00)
[2018-10-04] MEDS: ASPIRIN 81 MG CHEWABLE TABLET PO SCH (09:05)
[2018-10-04] MEDS: MULTIVITAMINS WITH MINERALS, THERAPEUTIC TABLET PO SCH (09:05)
[2018-10-04] MEDS: PANTOPRAZOLE SODIUM 40 MG DR TABLET PO SCH (09:05)
[2018-10-04] MEDS: BRIMONIDINE TARTRATE 0.2% 5 ML OPHTHALMIC SOLUTION OS SCH ×2 (09:06→20:14)
[2018-10-04] MEDS: PrednisoLONE ACETATE 1% 5 ML OPHTHALMIC SUSPENSION OD SCH (09:06)
[2018-10-04] MEDS: OxyCODONE HCL/ACETAMINOPHEN 5-325 MG TABLET PO PRN ×2 (09:14→18:50)
[2018-10-04 09:15] VITALS: BP 104/69
[2018-10-04 12:00] VITALS: BP 119/69
[2018-10-04 15:59] VITALS: BP 144/80
[2018-10-04 19:48] LABS: GLUCOMETER DEV NAME(LOC) 6N 2D; GLUCOSE,POINT OF CARE 269 MG/DL (70-110)
[2018-10-04 19:48] LABS: GLUCOMETER DEV NAME(LOC) 6N 2D; GLUCOSE,POINT OF CARE 226 MG/DL (70-110)
[2018-10-04] MEDS: ATORVASTATIN CALCIUM 10 MG TABLET PO SCH (20:14)
[2018-10-04] MEDS: LATANOPROST 0.005% 2.5 ML OPHTHALMIC SOLUTION OD SCH (20:14)
[2018-10-04 20:15] VITALS: BP 104/63
[2018-10-04 21:13] LABS: GLUCOMETER DEV NAME(LOC) 6N 1E; GLUCOSE,POINT OF CARE 269 MG/DL (70-110)
[2018-10-05] VITALS (8 sets, daily range): BP systolic 120–144; BP diastolic 65–83
[2018-10-05] MEDS ORDERED: DEXTROSE 5%-0.45% SODIUM CHL 1,000 ML IV ONE
[2018-10-05] MEDS: OxyCODONE HCL/ACETAMINOPHEN 5-325 MG TABLET PO PRN ×3 (00:33→20:43)
[2018-10-05] MEDS ORDERED: SODIUM CHLORIDE 0.9% 250 ML IV ONE (03:24)
[2018-10-05] MEDS: PIPERACILLIN/TAZO 3.375 GM/D5W 50 ML IV SCH ×4 (03:58→23:14)
[2018-10-05] MEDS: INSULIN LISPRO 100 UNITS/ML SQ PRN ×3 (06:10→22:18)
[2018-10-05 06:49] LABS: GLUCOMETER DEV NAME(LOC) 6N 2D; GLUCOSE,POINT OF CARE 238 MG/DL (70-110)
[2018-10-05 07:53] LABS: PROTHROMBIN TIME 10.5 SEC (9.4-11.6)
[2018-10-05 07:57] LABS: ANION GAP 7 mmol/L (8-16); CALCIUM, TOTAL 9.3 mg/dL (8.8-10.5); CARBON DIOXIDE 29 mmol/L (22-29); CHLORIDE 101 mmol/L (98-107); CREATININE 0.93 mg/dL (0.60-1.30); GLOMERULAR FILTR. RATE CALC > 60 mL/min (>60); GLUCOSE,RANDOM 277 mg/dL (70-110); POTASSIUM 4.5 mmol/L (3.5-5.1); SODIUM SERUM 137 mmol/L (136-145); UREA NITROGEN, BLOOD 12 mg/dL (7-18)
[2018-10-05] MEDS: PrednisoLONE ACETATE 1% 5 ML OPHTHALMIC SUSPENSION OD SCH (08:39)
[2018-10-05] MEDS: BRIMONIDINE TARTRATE 0.2% 5 ML OPHTHALMIC SOLUTION OS SCH ×2 (08:40→20:44)
[2018-10-05] MEDS ORDERED: BUPIVACAINE HCL/PF 0.5% 10 ML VIAL ONE (10:32)
[2018-10-05] MEDS ORDERED: LIDOCAINE/PF 2% 5 ML VIAL ONE (10:33)
[2018-10-05] MEDS ORDERED: LIDOCAINE/PF 1% 30 ML VIAL ONE (10:37)
[2018-10-05] MEDS ORDERED: BACITRACIN 50,000 UNITS/VIAL ONE (12:12)
[2018-10-05] MEDS ORDERED: POVIDONE-IODINE 30 GM OINTMENT TP ONE (12:25)
[2018-10-05] MEDS ORDERED: SODIUM CHLORIDE 0.9% 1,000 ML IV ONE (12:28)
[2018-10-05] MEDS ORDERED: FentaNYL CITRATE-PF 100 MCG/2 ML VIAL IVP PRN (13:00)
[2018-10-05] MEDS ORDERED: MEPERIDINE-PF 25 MG/ML VIAL IVP PRN (13:00)
[2018-10-05] MEDS ORDERED: HYDROmorphone 2 MG/ML SYRINGE IVP PRN (13:00)
[2018-10-05] MEDS: MULTIVITAMINS WITH MINERALS, THERAPEUTIC TABLET PO SCH (15:18)
[2018-10-05] MEDS: PANTOPRAZOLE SODIUM 40 MG DR TABLET PO SCH (15:18)
[2018-10-05] MEDS: ASPIRIN 81 MG CHEWABLE TABLET PO SCH (15:18)
[2018-10-05] MEDS: ATORVASTATIN CALCIUM 10 MG TABLET PO SCH (20:43)
[2018-10-05] MEDS: LATANOPROST 0.005% 2.5 ML OPHTHALMIC SOLUTION OD SCH (20:44)
[2018-10-05 22:38] LABS: GLUCOMETER DEV NAME(LOC) 6N.2; GLUCOSE,POINT OF CARE 261 MG/DL (70-110)
[2018-10-05 22:39] LABS: GLUCOMETER DEV NAME(LOC) 6N.2; GLUCOSE,POINT OF CARE 236 MG/DL (70-110)
[2018-10-06] MEDS: OxyCODONE HCL/ACETAMINOPHEN 5-325 MG TABLET PO PRN ×3 (00:34→20:41)
[2018-10-06 04:03] VITALS: BP 111/60
[2018-10-06] MEDS: PIPERACILLIN/TAZO 3.375 GM/D5W 50 ML IV SCH ×4 (04:15→21:37)
[2018-10-06] MEDS ORDERED: LIDOCAINE/PF 2% 5 ML VIAL IM ONE (04:53)
[2018-10-06] MEDS ORDERED: PROPOFOL 1% 20 ML VIAL IVP ONE (04:53)
[2018-10-06] MEDS ORDERED: KETAMINE HCL 50 MG/ML 10 ML VIAL IVP ONE (04:53)
[2018-10-06] MEDS ORDERED: MIDAZOLAM HCL 2 MG/2 ML VIAL IVP ONE (04:53)
[2018-10-06] MEDS: INSULIN LISPRO 100 UNITS/ML SQ PRN ×4 (06:31→20:43)
[2018-10-06 07:09] LABS: GLUCOMETER DEV NAME(LOC) 6N.1; GLUCOSE,POINT OF CARE 211 MG/DL (70-110)
[2018-10-06 07:49] VITALS: BP 114/53
[2018-10-06] MEDS: MULTIVITAMINS WITH MINERALS, THERAPEUTIC TABLET PO SCH (08:35)
[2018-10-06] MEDS: BRIMONIDINE TARTRATE 0.2% 5 ML OPHTHALMIC SOLUTION OS SCH ×2 (08:35→20:41)
[2018-10-06] MEDS: PANTOPRAZOLE SODIUM 40 MG DR TABLET PO SCH (08:35)
[2018-10-06] MEDS: PrednisoLONE ACETATE 1% 5 ML OPHTHALMIC SUSPENSION OD SCH (08:35)
[2018-10-06] MEDS: ASPIRIN 81 MG CHEWABLE TABLET PO SCH (08:35)
[2018-10-06 11:29] VITALS: BP 112/60
[2018-10-06 11:54] LABS: GLUCOMETER DEV NAME(LOC) 6N.1; GLUCOSE,POINT OF CARE 294 MG/DL (70-110)
[2018-10-06 16:01] VITALS: BP 127/68
[2018-10-06 20:01] LABS: GLUCOMETER DEV NAME(LOC) 6N.1; GLUCOSE,POINT OF CARE 274 MG/DL (70-110)
[2018-10-06 20:21] VITALS: BP 123/62
[2018-10-06] MEDS: ATORVASTATIN CALCIUM 10 MG TABLET PO SCH (20:40)
[2018-10-06] MEDS: LATANOPROST 0.005% 2.5 ML OPHTHALMIC SOLUTION OD SCH (20:41)
[2018-10-06 21:43] LABS: GLUCOMETER DEV NAME(LOC) 6N.2; GLUCOSE,POINT OF CARE 259 MG/DL (70-110)
[2018-10-06 23:40] VITALS: BP 118/59
[2018-10-07] MEDS: PIPERACILLIN/TAZO 3.375 GM/D5W 50 ML IV SCH ×3 (05:13→16:00)
[2018-10-07] MEDS: OxyCODONE HCL/ACETAMINOPHEN 5-325 MG TABLET PO PRN ×3 (05:25→16:10)
[2018-10-07] MEDS: INSULIN LISPRO 100 UNITS/ML SQ PRN ×2 (05:26→12:19)
[2018-10-07 06:08] LABS: GLUCOMETER DEV NAME(LOC) 6N.2; GLUCOSE,POINT OF CARE 180 MG/DL (70-110)
[2018-10-07 07:57] VITALS: BP 103/63
[2018-10-07] MEDS: PANTOPRAZOLE SODIUM 40 MG DR TABLET PO SCH (08:27)
[2018-10-07] MEDS: ASPIRIN 81 MG CHEWABLE TABLET PO SCH (08:27)
[2018-10-07] MEDS: MULTIVITAMINS WITH MINERALS, THERAPEUTIC TABLET PO SCH (08:27)
[2018-10-07] MEDS: BRIMONIDINE TARTRATE 0.2% 5 ML OPHTHALMIC SOLUTION OS SCH (08:28)
[2018-10-07] MEDS: PrednisoLONE ACETATE 1% 5 ML OPHTHALMIC SUSPENSION OD SCH (08:28)
[2018-10-07 11:04] LABS: GLUCOMETER DEV NAME(LOC) 6N.1; GLUCOSE,POINT OF CARE 255 MG/DL (70-110)
[2018-10-07] MEDS ORDERED: SULF1TAB42 PO (11:57)
[2018-10-07] MEDS ORDERED: TRAM50TA4 PO (11:59)
[2018-10-07] MEDS ORDERED: CIPR-278 PO (11:59)
[2018-10-07 12:21] VITALS: BP 108/54
== END 2018-10-07 16:45 | disposition home or self-care (01) | DRG 710 ==
LOC: EMS 20:32 → 5N 22:30 → 6N 09-29 11:55
PROVIDERS: ADMIT Internal Medicine; ATTEND Internal Medicine
PROC: 047P3ZZ Dilation of Right Anterior Tibial Artery, Percutaneous Approach (ICD-10-PCS; 2018-10-01)
PROC: 047T3ZZ Dilation of Right Peroneal Artery, Percutaneous Approach (ICD-10-PCS; 2018-10-01)
PROC: B41D1ZZ Fluoroscopy of Aorta and Bilateral Lower Extremity Arteries using Low Osmolar Contrast (ICD-10-PCS; 2018-10-01)
PROC: 047K3ZZ Dilation of Right Femoral Artery, Percutaneous Approach (ICD-10-PCS; principal; 2018-10-01 08:30)
PROC: 0Y6V0Z0 Detachment at Right 4th Toe, Complete, Open Approach (ICD-10-PCS; 2018-10-05)
DX: A41.9 Sepsis, unspecified organism (principal); I96 Gangrene, not elsewhere classified; E11.40 Type 2 diabetes mellitus with diabetic neuropathy, unspecified; E11.319 Type 2 diabetes mellitus with unspecified diabetic retinopathy without macular edema; E11.65 Type 2 diabetes mellitus with hyperglycemia; E11.69 Type 2 diabetes mellitus with other specified complication; L03.115 Cellulitis of right lower limb; K21.9 Gastro-esophageal reflux disease without esophagitis; I10 Essential (primary) hypertension; E78.5 Hyperlipidemia, unspecified; H54.8 Legal blindness, as defined in USA; M19.90 Unspecified osteoarthritis, unspecified site; I99.8 Other disorder of circulatory system; L97.519 Non-pressure chronic ulcer of other part of right foot with unspecified severity; M86.8X7 Other osteomyelitis, ankle and foot; E11.52 Type 2 diabetes mellitus with diabetic peripheral angiopathy with gangrene; E11.621 Type 2 diabetes mellitus with foot ulcer; I70.209 Unspecified atherosclerosis of native arteries of extremities, unspecified extremity; E78.00 Pure hypercholesterolemia, unspecified; H40.9 Unspecified glaucoma; L03.031 Cellulitis of right toe; Z89.429 Acquired absence of other toe(s), unspecified side; Z79.4 Long term (current) use of insulin; Z87.891 Personal history of nicotine dependence
CPT/HCPCS: 36245; 75710; 75962; 76000; 76937; 78315; 83036; 83605; 83735; 84100; 87040; 87070; 87081; 88305; 88311; 93005; 93925; 96365; 96375; A9503; G0378; J1644; J1815; J2250; J2270; J2543; J2704; J3010; J3475; J3490; J7030; J7050; J7120; Q9967